=== PATIENT | male | born 1985 | race Caucasian/White ===

== ENCOUNTER 2024-04-19 01:21 | Emergency (ER) | payer OTHER ==
[~2024-04-19] VITALS: Ht 182.9 cm; Wt 99.8 kg
[2024-04-19] MEDS ORDERED: TAMIFLU6 MG/1 ML PO (02:58)
[2024-04-19] MEDS: ACETAMINOPHEN 1000 MG/100 ML IV STA (04:10)
[2024-04-19] MEDS: KETOROLAC TROMETHAMINE 30 MG/ML VIAL IV STA (04:10)
[2024-04-19] MEDS: SODIUM CHLORIDE 0.9% 1000ML 1,000 ML IV ONE (04:11)
[2024-04-19] MEDS: FAMOTIDINE 20 MG/2 ML VIAL IV STA (04:11)
[2024-04-19] MEDS ORDERED: ONDANSETRON HCL INJ 2MG/ML 2ML 2 MG/ML VIAL ONE (06:07)
[2024-04-19 06:30] VITALS: PULSE 71; RESP 18; TEMP 98
[2024-04-19] MEDS ORDERED: ONDANSETRON HCL INJ 2MG/ML 2ML 2 MG/ML VIAL IV STA (06:53)
[2024-04-19 06:54] VITALS: BP 124/68; PULSE 71; RESP 18; TEMP 98.6; O2SAT 100
[2024-04-19] MEDS: ONDANSETRON HCL INJ 2MG/ML 2ML 2 MG/ML VIAL IV STA (07:06)
[2024-04-20] MEDS ORDERED: IOPAMIDOL 370 MG/ML 100 ML INFUS..BTL INJ ONE (07:36)
== END 2024-04-19 06:30 | disposition home or self-care (01) ==
LOC: FSED 01:53
DX: R06.02 Shortness of breath (principal); R07.9 Chest pain, unspecified; J10.1 Influenza due to other identified influenza virus with other respiratory manifestations; R06.4 Hyperventilation; Z11.52 Encounter for screening for COVID-19
CPT/HCPCS: 0223U; 71045; 71260; 80053; 80307; 81003; 83518; 84484; 85025; 85379; 87400; 93005; 99284; J0131; J1885; J2405; J7030; Q9967